=== PATIENT | male | born 1945 | race African-American/Black ===

== ENCOUNTER 2023-11-25 09:32 | Outpatient (CLI) | payer OTHER | END 2023-11-25 09:33 | disposition home or self-care (01) | LOC: CSHWCC 09:32 | PROVIDERS: ATTEND Nurse Practitioner Family | DX: E11.621 Type 2 diabetes mellitus with foot ulcer (principal); L97.522 Non-pressure chronic ulcer of other part of left foot with fat layer exposed | CPT/HCPCS: 11042; 87070; 87205; 99213; G0463 ==

== ENCOUNTER 2023-12-02 13:26 | Outpatient (CLI) | payer OTHER | END 2023-12-02 13:27 | disposition home or self-care (01) | LOC: CSHWCC 13:26 | PROVIDERS: ATTEND Nurse Practitioner Family | DX: E11.621 Type 2 diabetes mellitus with foot ulcer (principal); L97.522 Non-pressure chronic ulcer of other part of left foot with fat layer exposed; E11.43 Type 2 diabetes mellitus with diabetic autonomic (poly)neuropathy | CPT/HCPCS: 11042 ==

== ENCOUNTER 2023-12-09 13:33 | Outpatient (CLI) | payer OTHER | END 2023-12-09 13:34 | disposition home or self-care (01) | LOC: CSHWCC 13:33 | PROVIDERS: ATTEND Nurse Practitioner Family | DX: E11.621 Type 2 diabetes mellitus with foot ulcer (principal); L97.522 Non-pressure chronic ulcer of other part of left foot with fat layer exposed; E11.43 Type 2 diabetes mellitus with diabetic autonomic (poly)neuropathy | CPT/HCPCS: 97597 ==

== ENCOUNTER 2023-12-16 15:09 | Outpatient (CLI) | payer OTHER | END 2023-12-16 15:10 | disposition home or self-care (01) | LOC: CSHWCC 15:09 | PROVIDERS: ATTEND Nurse Practitioner Family | DX: E11.621 Type 2 diabetes mellitus with foot ulcer (principal); L97.522 Non-pressure chronic ulcer of other part of left foot with fat layer exposed; E11.43 Type 2 diabetes mellitus with diabetic autonomic (poly)neuropathy | CPT/HCPCS: 99212; G0463 ==

== ENCOUNTER 2023-12-31 12:42 | Outpatient (CLI) | payer OTHER | END 2023-12-31 12:43 | disposition home or self-care (01) | LOC: CSHWCC 12:42 | PROVIDERS: ATTEND Nurse Practitioner Family | DX: Z86.31 Personal history of diabetic foot ulcer (principal) | CPT/HCPCS: 99212; G0463 ==